=== PATIENT | male | born 1945 | race Caucasian/White ===

== ENCOUNTER 2017-10-04 08:42 | Outpatient (CLI) | payer OTHER ==
[2017-10-04] MEDS ORDERED: AMBIEN5 MG (15:42)
[2017-10-04] MEDS ORDERED: EPANED1 MG/1 M1 (15:42)
[2017-10-04] MEDS ORDERED: ALPRAZOLAM0.025 GM (15:42)
== END 2017-10-04 08:59 | disposition home or self-care (01) ==
LOC: LAB 08:42
DX: R22.2 Localized swelling, mass and lump, trunk (principal); Z01.812 Encounter for preprocedural laboratory examination

== ENCOUNTER 2017-10-09 05:20 | Day surgery (SDC) | payer OTHER ==
[~2017-10-09 05:20] MED LIST: ALPRAZOLAM0.025 GM; AMBIEN5 MG; EPANED1 MG/1 M1
== END 2017-10-09 10:55 | disposition home or self-care (01) ==
LOC: CIR.AMB 05:20
DX: L72.0 Epidermal cyst (principal); L72.3 Sebaceous cyst